=== PATIENT | male | born 1980 | race Caucasian/White ===

== ENCOUNTER 2016-09-25 10:26 | Emergency (ER) | payer SELFPAY ==
[2016-09-25] MEDS ORDERED: ONDANSETRON 4 MG TAB.RAPDIS SL ONE (10:41)
[2016-09-25] MEDS ORDERED: LORAZEPAM INJ 2 MG/1 ML VIAL IM ONE (10:41)
--- NOTE | 2016-09-25 10:44 | ER Document Report ---
ED Substance Abuse / Acc. OD - General Chief Complaint: Drug Abuse Stated Complaint: POSSIBLE DRUG WITHDRAWAL Time seen by provider: 10:41 Mode of Arrival: Ambulatory Information source: Patient TRAVEL OUTSIDE OF THE [place] IN LAST 30 DAYS: No - HPI Patient complains to provider of: Drug abuse, Drug withdrawal Onset: Other - 2 days Onset/Duration: Gradual, Persistent, Worse Quality of pain: Achy Severity: Moderate Situational problems related to: Son Associated Symptoms: Fever/chills/sweaty, Nausea/vomiting Similar symptoms previously: Yes Recently seen / treated by doctor: No Notes: Patient is a 36-year-old male who presents to the emergency room complaining of symptoms of withdrawal related to heroin abuse, states is been using 1 g or more heroin on a daily basis, through IV injection, for the past 3 months, states that he has recently been upset with himself because he cannot interact with this young son appropriately and therefore would like to go through detox, he has been through detox in the past, was last seen at [facility] in November of last year, missed an appointment and was kicked out of the program for 3 months then never went back, he reports nausea, shakiness, generalized feeling of anxiety, denies any suicidal or homicidal ideations - Related Data Allergies/Adverse Reactions: acetaminophen [From Vicodin] Allergy (Verified 09/25/16 12:22) hydrocodone bitartrate [From Vicodin] Allergy (Verified 09/25/16 12:22) ibuprofen [From Motrin] Allergy (Verified 09/25/16 12:22) Past Medical History - General Information source: Patient - Social History Smoking Status: Current Every Day Smoker Drug Abuse: Heroin Family History: None Patient has suicidal ideation: No Patient has homicidal ideation: No - Past Medical History Cardiac Medical History: Denies: Hx Coronary Artery Disease, Hx Heart Attack, Hx Hypertension Pulmonary Medical History: Denies: Hx Asthma, Hx Bronchitis, Hx COPD, Hx Pneumonia Neurological Medical History: Denies: Hx Cerebrovascular Accident, Hx Seizures Renal/ Medical History: Denies: Hx Peritoneal Dialysis Musculoskeltal Medical History: Denies Hx Arthritis Psychiatric Medical History: Reports: Hx Anxiety Past Surgical History: Reports: Hx Oral Surgery - mass back right upper thigh, Hx Orthopedic Surgery - Mass back right upper thigh, right finger. Denies: Hx Pacemaker - Immunizations Hx Diphtheria, Pertussis, Tetanus Vaccination: Yes - 2006 Review of Systems - Review of Systems Constitutional: Chills, Diaphoresis EENT: No symptoms reported Cardiovascular: No symptoms reported Respiratory: No symptoms reported Gastrointestinal: See HPI Genitourinary: No symptoms reported Male Genitourinary: No symptoms reported Musculoskeletal: No symptoms reported Skin: No symptoms reported Hematologic/Lymphatic: No symptoms reported Neurological/Psychological: See HPI -: Yes All other systems reviewed and negative Physical Exam - Vital signs Vitals: Temp Pulse Resp BP Pulse Ox 97.9 F 86 20 108/73 100 09/25/16 10:32 09/25/16 10:32 09/25/16 10:32 09/25/16 10:32 09/25/16 10:32 Interpretation: Normal - General General appearance: Appears well, Alert - HEENT Head: Normocephalic, Atraumatic Eyes: Normal Pupils: PERRL - Respiratory Respiratory status: No respiratory distress Chest status: Nontender Breath sounds: Normal Chest palpation: Normal - Cardiovascular Rhythm: Regular Heart sounds: Normal auscultation Murmur: No - Abdominal Inspection: Normal Distension: No distension Bowel sounds: Normal Tenderness: Nontender Organomegaly: No organomegaly - Back Back: Normal, Nontender - Extremities General upper extremity: Normal inspection, Nontender, Normal color, Normal ROM , Normal temperature General lower extremity: Normal inspection, Nontender, Normal color, Normal ROM , Normal temperature, Normal weight bearing. No: Charlene's sign - Neurological Neuro grossly intact: Yes Cognition: Normal Orientation: AAOx4 Aron Coma Scale Eye Opening: Spontaneous Aron Coma Scale Verbal: Oriented Aron Coma Scale Motor: Obeys Commands Aron Coma Scale Total: 15 Speech: Normal Motor strength normal: LUE, RUE, LLE, RLE Sensory: Normal - Psychological Associated symptoms: Flat affect - Skin Skin Temperature: Warm Skin Moisture: Diaphoretic Skin Color: Normal Course - Re-evaluation Re-evalutation: 09/25/16 13:49 Patient resting comfortably on stretcher, stable vital signs, states he wants to be discharged so he can follow-up if this to get outpatient detox treatment, he is not suicidal or homicidal, therefore he will be discharged with a small amount of olanzapine which he states has helped him with his symptoms in the past, and information for follow-up, patient was advised to return if his symptoms worsen in any, patient acknowledges understanding and agreement with this plan - Vital Signs Vital signs: Temp Pulse Resp BP Pulse Ox 97.9 F 86 20 108/73 100 09/25/16 10:32 09/25/16 10:32 09/25/16 10:32 09/25/16 10:32 09/25/16 10:32 - Laboratory Result Diagrams: 09/25/16 10:50 09/25/16 10:50 Laboratory results interpreted by me: 09/25/16 10:50 Potassium 5.1 H Direct Bilirubin 0.5 H Total Protein 8.7 H Salicylates < 1.0 L Acetaminophen < 10 L - EKG Interpretation by [facility] EKG shows normal: Sinus rhythm Rate: Normal Rhythm: NSR Discharge - Discharge Clinical Impression: Heroin abuse Condition: Stable Disposition: HOME, SELF-CARE Instructions: Narcotic Abuse ([facility]) Additional Instructions: Follow up with mobile crisis in the next 1-2 days for assistance with placement detox or rehabilitation, return to the emergency room immediately if symptoms worsen or any additional concerns. Prescriptions: Olanzapine [Zyprexa 2.5 mg Tablet] 2.5 mg PO BID #20 tablet Forms: Smoking Cessation Education
[2016-09-25 11:17] LABS: ABSOLUTE BASOPHILS # (AUTO) 0.1 10^3/uL (0.0-0.2); ABSOLUTE EOSINOPHILS # (AUTO) 0.1 10^3/uL (0.0-0.6); ABSOLUTE LYMPHOCYTES (AUTO) 2.1 10^3/uL (0.5-4.7); ABSOLUTE MONOCYTES (AUTO) 0.5 10^3/uL (0.1-1.4); ABSOLUTE NEUT (AUTO) 4.9 10^3/uL (1.7-8.2); BASOPHILS % (AUTO) 0.7 % (0-2); EOSINOPHILS % (AUTO) 1.8 % (0-6); HEMATOCRIT 42.6 % (37.9-51.0); HEMOGLOBIN 14.4 g/dL (13.5-17.0); HGB HCT DIFFERENCE 0.6; LYMPHOCYTES % (AUTO) 27.8 % (13-45); MEAN CORPUSCULAR HEMOGLOBIN 29.6 pg (27.0-33.4); MEAN CORPUSCULAR HGB CONC 33.7 g/dL (32.0-36.0); MEAN CORPUSCULAR VOLUME 88 fl (80-97); MONOCYTES % (AUTO) 6.7 % (3-13); RED BLOOD COUNT 4.85 10^6/uL (4.35-5.55); RED CELL DISTRIBUTION WIDTH 12.8 % (11.5-14.0); WHITE BLOOD COUNT 7.7 10^3/uL (4.0-10.5)
[2016-09-25 11:19] LABS: APPEARANCE,URINE CLEAR; BILIRUBIN,URINE NEGATIVE (NEGATIVE); GLUCOSE, URINE NEGATIVE (NEGATIVE); KETONES,URINE NEGATIVE (NEGATIVE); LEUKOCYTE ESTERASE,URINE NEGATIVE (NEGATIVE); NITRITE,URINE NEGATIVE (NEGATIVE); PROTEIN,URINE NEGATIVE (NEGATIVE); URINE SPECIFIC GRAVITY 1.008; UROBILINOGEN,URINE NEGATIVE mg/dL (<2.0)
[2016-09-25 11:34] LABS: ALANINE AMINOTRANSFERASE 41 U/L (21-72); ALBUMIN 4.5 g/dL (3.5-5.0); ALKALINE PHOSPHATASE 85 U/L (38-126); ANION GAP 12 (5-19); ASPARTATE AMINO TRANSFERASE 34 U/L (17-59); BILIRUBIN,DIRECT 0.5 mg/dL (0.0-0.4); BILIRUBIN,TOTAL 0.9 mg/dL (0.2-1.3); BLOOD UREA NITROGEN 15 mg/dL (7-20); CALCIUM 10.1 mg/dL (8.4-10.2); CARBON DIOXIDE 30 mmol/L (22-30); CHLORIDE 102 mmol/L (98-107); CREATININE RESULT 0.97 mg/dL (0.52-1.25); GLUCOSE 100 mg/dL (75-110); POTASSIUM 5.1 mmol/L (3.6-5.0); SODIUM 143.7 mmol/L (137-145); TOTAL PROTEIN 8.7 g/dL (6.3-8.2)
[2016-09-25 11:36] LABS: ALCOHOL < 10 mg/dL (NONE DETECTED)
[2016-09-25 11:43] LABS: URINE BARBITURATES SCREEN NEGATIVE; URINE METHADONE SCREEN NEGATIVE; URINE OPIATES LOW UNCONFIRMED POSITIVE; URINE PHENCYCLIDINE SCREEN NEGATIVE
[2016-09-25] MEDS ORDERED: DIAZEPAM INJ 10 MG/2 ML DISP.SYRIN IV ONE (12:21)
[2016-09-25] MEDS ORDERED: NORMAL SALINE 1000 ML 1,000 ML IV PRN (12:21)
[2016-09-25 14:00] VITALS: BP 114/76
--- NOTE | 2016-09-25 18:54 | EKG REPORT ---
SEVERITY:- ABNORMAL ECG - SINUS RHYTHM LEFT ANTERIOR FASCICULAR BLOCK ST ELEV, PROBABLE NORMAL EARLY REPOL PATTERN : Confirmed by: Forest Quiroz MD 25-Sep-2016 18:54:12
== END 2016-09-25 13:58 | disposition home or self-care (01) ==
LOC: ER 10:26
DX: F11.10 Opioid abuse, uncomplicated (principal); R61 Generalized hyperhidrosis; R68.83 Chills (without fever); R11.2 Nausea with vomiting, unspecified; F41.9 Anxiety disorder, unspecified; Z88.5 Allergy status to narcotic agent; Z88.6 Allergy status to analgesic agent; F17.200 Nicotine dependence, unspecified, uncomplicated
CPT/HCPCS: 93005; 99284; 96372; 96361; 96374; 36415; 80307 ×4; 85025; 80053; 81001; 93010; J3360; S0119; J2060; J7030

== ENCOUNTER 2018-06-30 12:27 | Emergency (ER) | payer SELFPAY ==
[2018-06-30] MEDS ORDERED: ONDANSETRON 4 MG TAB.RAPDIS PO ONE (13:21)
--- NOTE | 2018-06-30 13:22 | ER Document Report ---
ED Medical Screen (RME) - General Chief Complaint: Flank Pain Stated Complaint: URINARY ISSUE Time Seen by Provider: 06/30/18 13:07 Notes: 38-year-old male to the emergency department complaining of left flank pain, lower abdominal pain and dysuria. No fever. Nausea but no vomiting. TRAVEL OUTSIDE OF THE [place] IN LAST 30 DAYS: No - Related Data Allergies/Adverse Reactions: acetaminophen [From Vicodin] Allergy (Verified 06/30/18 12:32) hydrocodone bitartrate [From Vicodin] Allergy (Verified 06/30/18 12:32) ibuprofen [From Motrin] Allergy (Verified 06/30/18 12:32) Past Medical History - Social History Frequency of alcohol use: None Drug Abuse: None - Past Medical History Cardiac Medical History: Denies: Hx Coronary Artery Disease, Hx Heart Attack, Hx Hypertension Pulmonary Medical History: Denies: Hx Asthma, Hx Bronchitis, Hx COPD, Hx Pneumonia Neurological Medical History: Denies: Hx Cerebrovascular Accident, Hx Seizures Renal/ Medical History: Denies: Hx Peritoneal Dialysis Musculoskeltal Medical History: Denies Hx Arthritis Psychiatric Medical History: Reports: Hx Anxiety Past Surgical History: Reports: Hx Oral Surgery, Hx Orthopedic Surgery - Mass back right upper thigh, right finger. Denies: Hx Pacemaker - Immunizations Hx Diphtheria, Pertussis, Tetanus Vaccination: Yes - 2005 Physical Exam - Vital signs Vitals: Temp Pulse Resp BP Pulse Ox 98.9 F 66 16 121/69 100 06/30/18 12:50 06/30/18 12:50 06/30/18 12:50 06/30/18 12:50 06/30/18 12:50 Course - Vital Signs Vital signs: Temp Pulse Resp BP Pulse Ox 98.9 F 66 16 121/69 100 06/30/18 12:50 06/30/18 12:50 06/30/18 12:50 06/30/18 12:50 06/30/18 12:50
[2018-06-30 13:55] LABS: AMORPHOUS SEDIMENT,URINE 1+ /HPF; APPEARANCE,URINE CLOUDY; BILIRUBIN,URINE NEGATIVE (NEGATIVE); COLOR,URINE YELLOW; GLUCOSE, URINE NEGATIVE (NEGATIVE); KETONES,URINE NEGATIVE (NEGATIVE); LEUKOCYTE ESTERASE,URINE NEGATIVE (NEGATIVE); NITRITE,URINE NEGATIVE (NEGATIVE); PROTEIN,URINE NEGATIVE (NEGATIVE); URINE SPECIFIC GRAVITY 1.012; UROBILINOGEN,URINE NEGATIVE mg/dL (<2.0)
[2018-06-30 14:03] LABS: URINE AMPHETAMINES SCREEN NEGATIVE; URINE BARBITURATES SCREEN NEGATIVE; URINE BENZODIAZEPINES SCREEN NEGATIVE; URINE COCAINE SCREEN NEGATIVE; URINE MARIJUANA (THC) SCREEN NEGATIVE; URINE METHADONE SCREEN NEGATIVE; URINE PHENCYCLIDINE SCREEN NEGATIVE
[2018-06-30 14:11] LABS: ABSOLUTE BASOPHILS # (AUTO) 0.1 10^3/uL (0.0-0.2); ABSOLUTE EOSINOPHILS # (AUTO) 0.2 10^3/uL (0.0-0.6); ABSOLUTE MONOCYTES (AUTO) 0.4 10^3/uL (0.1-1.4); ABSOLUTE NEUT (AUTO) 4.2 10^3/uL (1.7-8.2); BASOPHILS % (AUTO) 1.1 % (0-2); EOSINOPHILS % (AUTO) 2.8 % (0-6); HEMATOCRIT 38.4 % (37.9-51.0); HEMOGLOBIN 13.2 g/dL (13.5-17.0); LYMPHOCYTES % (AUTO) 29.2 % (13-45); MEAN CORPUSCULAR HEMOGLOBIN 30.2 pg (27.0-33.4); MEAN CORPUSCULAR HGB CONC 34.4 g/dL (32.0-36.0); MEAN CORPUSCULAR VOLUME 88 fl (80-97); MONOCYTES % (AUTO) 6.2 % (3-13); PLATELET COUNT 202 10^3/uL (150-450); RED BLOOD COUNT 4.37 10^6/uL (4.35-5.55); RED CELL DISTRIBUTION WIDTH 12.4 % (11.5-14.0); SEGMENTED NEUTROPHILS % (AUTO) 60.7 % (42-78); TOTAL CELLS COUNTED % (AUTO) 100 %; WHITE BLOOD COUNT 6.9 10^3/uL (4.0-10.5)
[2018-06-30 14:28] LABS: ALANINE AMINOTRANSFERASE 30 U/L (21-72); ALBUMIN 4.3 g/dL (3.5-5.0); ALKALINE PHOSPHATASE 79 U/L (38-126); ANION GAP 6 (5-19); ASPARTATE AMINO TRANSFERASE 25 U/L (17-59); BILIRUBIN,DIRECT 0.1 mg/dL (0.0-0.4); BILIRUBIN,TOTAL 0.6 mg/dL (0.2-1.3); BLOOD UREA NITROGEN 10 mg/dL (7-20); CALCIUM 9.5 mg/dL (8.4-10.2); CARBON DIOXIDE 30 mmol/L (22-30); CHLORIDE 106 mmol/L (98-107); GLUCOSE 116 mg/dL (75-110); POTASSIUM 4.9 mmol/L (3.6-5.0); SODIUM 142.2 mmol/L (137-145); TOTAL PROTEIN 7.4 g/dL (6.3-8.2)
[2018-06-30] MEDS ORDERED: FENTANYL CITRATE INJ/PF 100 MCG/2 ML AMPUL IM ONE (14:31)
--- NOTE | 2018-06-30 14:38 | ER Document Report ---
ED General - General Chief Complaint: Flank Pain Stated Complaint: URINARY ISSUE Time Seen by Provider: 06/30/18 13:07 Notes: 38-year-old male who admits to intermittent IV drug use presents to the emergency department for dysuria that started last night that is now bilateral flank pain. Patient states the pain radiates around to his back into his bilateral flanks that started this morning. He also complains of lower abdominal pain. Patient denies fever, chills. Patient complains of nausea but denies vomiting. Patient denies any urethral discharge. Patient complains of dysuria and urinary frequency. Patient denies any shortness of breath or chest pain. She denies any other symptoms. TRAVEL OUTSIDE OF THE [place] IN LAST 30 DAYS: No - Related Data Allergies/Adverse Reactions: acetaminophen [From Vicodin] Allergy (Verified 06/30/18 12:32) hydrocodone bitartrate [From Vicodin] Allergy (Verified 06/30/18 12:32) ibuprofen [From Motrin] Allergy (Verified 06/30/18 12:32) Past Medical History - Social History Smoking Status: Current Every Day Smoker Frequency of alcohol use: None Drug Abuse: None Family History: None Patient has suicidal ideation: No Patient has homicidal ideation: No - Past Medical History Cardiac Medical History: Denies: Hx Coronary Artery Disease, Hx Heart Attack, Hx Hypertension Pulmonary Medical History: Denies: Hx Asthma, Hx Bronchitis, Hx COPD, Hx Pneumonia Neurological Medical History: Denies: Hx Cerebrovascular Accident, Hx Seizures Renal/ Medical History: Denies: Hx Peritoneal Dialysis Musculoskeletal Medical History: Denies Hx Arthritis Psychiatric Medical History: Reports: Hx Anxiety Past Surgical History: Reports: Hx Oral Surgery, Hx Orthopedic Surgery - Mass back right upper thigh, right finger. Denies: Hx Pacemaker - Immunizations Hx Diphtheria, Pertussis, Tetanus Vaccination: Yes - 2005 Review of Systems - Review of Systems Constitutional: See HPI EENT: No symptoms reported Cardiovascular: See HPI Respiratory: See HPI Gastrointestinal: See HPI Genitourinary: See HPI Male Genitourinary: See HPI Musculoskeletal: No symptoms reported Skin: No symptoms reported Hematologic/Lymphatic: No symptoms reported Neurological/Psychological: No symptoms reported Physical Exam - Vital signs Vitals: Temp Pulse Resp BP Pulse Ox 98.9 F 66 16 121/69 100 06/30/18 12:50 06/30/18 12:50 06/30/18 12:50 06/30/18 12:50 06/30/18 12:50 - Notes Notes: PHYSICAL EXAMINATION: Reviewed vital signs and charting by RN GENERAL: Alert. No acute distress. HEAD: Normocephalic, atraumatic. EYES: Pupils equal, round. Extraocular movements intact. ENT: Oral mucosa moist NECK: Full range of motion. Trachea midline. LUNGS: Clear to auscultation bilaterally, no wheezes, rales, or rhonchi. No respiratory distress. HEART: Regular rate and rhythm. No murmur ABDOMEN: soft, generalized tenderness. Non-distended. Bowel sounds present in all 4 quadrants. EXTREMITIES: Moves all 4 extremities spontaneously. No edema, No cyanosis. BACK: + bilateral CVAT NEUROLOGICAL: Alert and oriented. Normal speech. PSYCH: Normal affect, normal mood. SKIN: Warm, dry, normal turgor. No rashes or lesions noted. Course - Re-evaluation Re-evalutation: 06/30/18 14:38 38-year-old male who I am concerned is drug-seeking presents with urinary symptoms. There was blood in his urine and greater than 182 RBCs. He has tenderness to light palpation on his back and in his abdomen. I am going to do a CT noncontrast limited for renal protocol. I will give him 1 dose of fentanyl IM for pain control as I cannot improve this patient's pain or lack thereof. This will be given just before going to CT. - Vital Signs Vital signs: Temp Pulse Resp BP Pulse Ox 98.9 F 66 16 121/69 100 06/30/18 12:50 06/30/18 12:50 06/30/18 12:50 06/30/18 12:50 06/30/18 12:50 - Laboratory Result Diagrams: 06/30/18 13:50 06/30/18 13:50 Laboratory results interpreted by me: 06/30/18 06/30/18 06/30/18 13:25 13:50 13:50 Hgb 13.2 L Glucose 116 H Urine Blood LARGE H Discharge - Discharge Clinical Impression: Nausea Abdominal pain Qualifiers: Abdominal location: generalized Qualified Code(s): R10.84 - Generalized abd ominal pain Urinary tract infection Qualifiers: Urinary tract infection type: acute cystitis Hematuria presence: with hematuria Qualified Code(s): N30.01 - Acute cystitis with hematuria Condition: Good Disposition: HOME, SELF-CARE Instructions: Abdominal Pain ([facility]), Cephalexin ([facility]), Urinary Tract Infection ([facility]) Additional Instructions: You are seen in the emergency department this afternoon for abdominal pain. It is unclear why the pain is so severe bu there are a few things that could be happening. We are treating for urinary tract infection which could cause the urinary symptoms and the pain that goes around in your flanks. Second, because you have a history of drug use that alter your pain receptors and you can have a condition called hyperesthesia with an exaggerated pain response. Your CT was negative for any kidney stone or any concerning abnormalities. We are treating you for urinary tract infection. Were giving you a medication called Keflex which she will take twice a day for 7 days. If you develop high fever, pass out, have worsening abdominal pain, or have any other concerning symptoms please immediately return to the emergency department.
[2018-06-30 15:14] LABS: CHLAM PCR NOT DETECTED (NOT DETECT); GON PCR NOT DETECTED (NOT DETECT)
--- NOTE | 2018-06-30 15:15 | RADIOLOGY REPORT (SQ) ---
EXAM DESCRIPTION: CT LTD RENAL STONE PROTOCOL ON COMPLETED DATE/TIME: 06/30/2018 2:59 pm REASON FOR STUDY: B flank pain COMPARISON: None. TECHNIQUE: CT scan of the abdomen and pelvis performed without intravenous or oral contrast. Images reviewed with lung, soft tissue, and bone windows. Reconstructed coronal and sagittal MPR images revi ewed. All images stored on PACS. All CT scanners at this facility use dose modulation, iterative reconstruction, and/or weight based d osing when appropriate to reduce radiation dose to as low as reasonably achievable (ALARA). [facility]: Dose Right [facility]: CareDose [facility]: Dose Right [facility]: Teradose 4D [facility]: Smart [employer] RADIATION DOSE: CT Rad equipment meets quality standard of care and radiation dose reduction techniq ues were employed. CTDIvol: 4.8 mGy. DLP: 250 mGy-cm.mGy. LIMITATIONS: None. FINDINGS: LOWER CHEST: There are several faint nodules in the lung bases, the largest 2 mm. Low faina picion but will need non emergent noncontrast chest CT followup. NON-CONTRASTED LIVER, SPLEEN, ADRENALS: Evaluation limited by lack of IV contrast. No identified sign ificant masses. PANCREAS: No masses. No peripancreatic inflammatory changes. GALLBLADDER: No identified stones by CT criteria. No inflammatory changes to suggest cholecystitis. RIGHT KIDNEY AND URETER: No suspicious masses. Assessment limited by lack of IV contrast. No signif icant calcifications. No hydronephrosis or hydroureter. LEFT KIDNEY AND URETER: No suspicious masses. Assessment limited by lack of IV contrast. No signifi cant calcifications. No hydronephrosis or hydroureter. AORTA AND RETROPERITONEUM: No aneurysm. No retroperitoneal masses or adenopathy. BOWEL AND PERITONEAL CAVITY: Abundant fecal material. No obvious masses or inflammatory changes. No free fluid. APPENDIX: Normal. PELVIS, BLADDER, AND ABDOMINAL WALL:No abnormal masses. No free fluid. Bladder normal. BONES: Grade 1 spondylolisthesis and spondylolysis L5-S1. No acute findings. OTHER: No other significant finding. IMPRESSION: 1. No evidence of urinary tract stones or hydronephrosis. 2. Fecal retention. 3. Incidental pulmonary nodules. COMMENT: Quality ID # [id number]: Final reports with documentation of one or more dose reduction techniques (e.g., Automated exposure control, adjustment of the mA and/or kV according to patient size, use of iterative reconstruction technique) TECHNICAL DOCUMENTATION: JOB ID: [id number] [employer]- All Rights Reserved Reading location - IP/workstation name: [email or web address]
[2018-06-30] MEDS ORDERED: CEPHALEXIN 500 MG CAPSULE PO ONE (15:27)
[2018-06-30 15:39] VITALS: BP 111/61
== END 2018-06-30 15:39 | disposition home or self-care (01) ==
LOC: ER 12:27
DX: N30.01 Acute cystitis with hematuria (principal); R10.84 Generalized abdominal pain; R11.0 Nausea; F17.200 Nicotine dependence, unspecified, uncomplicated; Z88.6 Allergy status to analgesic agent; Z88.5 Allergy status to narcotic agent
CPT/HCPCS: 99284; 96372; 36415; 85025; 80053; 81001; 80307; 87491; 87591; 76380; S0119; J3010

== ENCOUNTER 2019-10-18 22:14 | Emergency (ER) | payer SELFPAY ==
[2019-10-19] MEDS ORDERED: LIDOCAINE 5% (700 MG) TRANSDERMAL ADH..PATCH TP ONE (00:33)
[2019-10-19] MEDS ORDERED: DOXYCYCLINE HYCLATE 100 MG TABLET PO ONE (00:33)
[2019-10-19] MEDS ORDERED: ACYCLOVIR 800 MG TABLET PO ONE (00:35)
[2019-10-19 00:39] VITALS: BP 130/71
--- NOTE | 2019-10-19 00:41 | ER Document Report ---
ED General - General Chief Complaint: Leg Pain Stated Complaint: LEFT LEG PAIN Information source: Patient TRAVEL OUTSIDE OF THE [place] IN LAST 30 DAYS: No - HPI Notes: 39 male history of IVDU presents with proximately 2 weeks ago gradual onset gradually worsening rash on the left leg that is painful. Patient says that since the first rash started on left lower leg that he saw that it was purulent and has since been spreading to other areas on the leg. Patient denies any fever, has otherwise been feeling well eating drinking normally, no vomiting, no prior treatment. Patient denies any chest pain, palpitations, dizziness, syncope, lesions elsewhere, prior episodes, other medical history. - Related Data Allergies/Adverse Reactions: acetaminophen [From Vicodin] Allergy (Verified 06/30/18 12:32) hydrocodone bitartrate [From Vicodin] Allergy (Verified 06/30/18 12:32) ibuprofen [From Motrin] Allergy (Verified 06/30/18 12:32) Past Medical History - General Information source: Patient - Social History Smoking Status: Current Every Day Smoker Frequency of alcohol use: None Drug Abuse: None, Heroin - IV heroin Family History: None Patient has homicidal ideation: No - Past Medical History Cardiac Medical History: Denies: Hx Coronary Artery Disease, Hx Heart Attack, Hx Hypertension Pulmonary Medical History: Denies: Hx Asthma, Hx Bronchitis, Hx COPD, Hx Pneumonia Neurological Medical History: Denies: Hx Cerebrovascular Accident, Hx Seizures Renal/ Medical History: Denies: Hx Peritoneal Dialysis Musculoskeletal Medical History: Denies Hx Arthritis Psychiatric Medical History: Reports: Hx Anxiety Past Surgical History: Reports: Hx Oral Surgery, Hx Orthopedic Surgery - Mass back right upper thigh, right finger. Denies: Hx Pacemaker - Immunizations Hx Diphtheria, Pertussis, Tetanus Vaccination: Yes - 2005 Review of Systems - Review of Systems Notes: REVIEW OF SYSTEMS: CONSTITUTIONAL : Denies fever, chills, or sweats. EENT: Denies recent cold/sinus symptoms, denies throat pain CARDIOVASCULAR: Denies chest pain, ROSALIA RESPIRATORY: Denies cough, denies shortness of breath. GASTROINTESTINAL: Denies abdominal pain, nausea/vomiting. GENITOURINARY: Denies difficulty urinating, painful urination. FEMALE GENITOURINARY: Denies abnormal vaginal bleeding, vaginal discharge. MUSCULOSKELETAL: Denies neck pain, back pain. SKIN: + rash +lesions HEMATOLOGIC : Denies easy bruising or bleeding. LYMPHATIC: Denies swollen, enlarged glands. NEUROLOGICAL: Denies headache, denies change in gait. PSYCHIATRIC: Denies anxiety or stress or depression. Physical Exam - Vital signs Vitals: Temp Pulse Resp BP Pulse Ox 98.5 F 106 H 18 128/77 H 96 10/18/19 22:27 10/18/19 22:27 10/18/19 22:27 10/18/19 22:27 10/18/19 22:27 - Notes Notes: PHYSICAL EXAMINATION: GENERAL: Well-appearing, well-nourished and in no acute distress. HEAD: Atraumatic, normocephalic. EYES: Pupils equal round and appropriate constriction, sclera anicteric, conjunctiva are normal. ENT: nares patent, moist mucous membranes. NECK: Normal range of motion, supple without lymphadenopathy LUNGS: Normal respiratory rate and effort, speaking in full sentences HEART: Regular rate, no JVD, no lower extremity edema ABDOMEN: Soft, nontender EXTREMITIES: Normal range of motion, no pitting or edema. No cyanosis. NEUROLOGICAL: Awake, alert, conversing appropriately, moves all extremities spontaneously. PSYCH: Normal mood, normal affect. SKIN: Warm, Dry, normal turgor, several clusters of pustules with surrounding erythema on left upper and lower leg without any discrete areas of fluctuance Course - Re-evaluation Re-evalutation: 10/19/19 00:39 Patient Shiley tachycardic at triage but resolved without intervention by the time my initial evaluation, likely secondary to exertion immediately prior to triage. rash consistent with purulent cellulitis of left lower leg. No systemic symptoms, no prior trial of outpatient antibiotics, patient appropriate for outpatient antibiotics with community-acquired MRSA coverage and follow-up in outpatient clinic. Despite cluster formation not in dermatomal distribution andlesions have been purulent since onset, not consistent with shingles or herpes. Given return precautions which he demonstrated understanding of. 10/19/19 00:43 - Vital Signs Vital signs: Temp Pulse Resp BP Pulse Ox 98.5 F 106 H 18 128/77 H 96 10/18/19 22:29 10/18/19 22:27 10/18/19 22:27 10/18/19 22:27 10/18/19 22:27 Discharge - Discharge Clinical Impression: Cellulitis Qualifiers: Site of cellulitis: extremity Site of cellulitis of extremity: lower extremity Laterality: left Qualified Code(s): L03.116 - Cellulitis of left lower limb Condition: Good Disposition: HOME, SELF-CARE Additional Instructions: Cellulitis You have an infection of your skin and underlying soft tissues called cellulitis. This is due to bacteria, which can enter through any break in the skin, or even through an irritated hair follicle. Untreated, cellulitis will usually worsen. Antibiotics are required. Usually, warm packs or warm soaks, and elevation of the infected area are recommended. You should start getting better within 24 to 36 hours. Most infections respond quickly to the right medication. Follow-up care is important, however, to check for abscess (boil) formation, unsuspected foreign b day, or resistant infection. If you develop fever, chills, or if the area of infection is becoming rapidly more swollen or painful, call the doctor at once. Follow-up with primary doctor in 3 days. Return to ED immediately if you have worsening symptoms, fever, dizziness, confusion, fainting, or any other alarming symptoms. Prescriptions: Doxycycline Monohydrate 100 mg PO BID #20 capsule
[2019-10-19] MEDS ORDERED: ACYCLOVIR 800 MG TABLET ONE (02:08)
== END 2019-10-19 02:26 | disposition home or self-care (01) ==
LOC: ER 22:14
DX: L03.116 Cellulitis of left lower limb (principal); Z88.8 Allergy status to other drugs, medicaments and biological substances; Z88.6 Allergy status to analgesic agent; Z88.5 Allergy status to narcotic agent; F17.200 Nicotine dependence, unspecified, uncomplicated
CPT/HCPCS: 99283; J3490